=== PATIENT | male | born 1955 | race Caucasian/White ===

== ENCOUNTER 2018-08-30 18:07 | Inpatient (IN) | payer OTHER ==
[~2018-08-30] VITALS: Ht 176.5 cm; Wt 86.0 kg
[2018-08-30 19:45] VITALS: BP 116/81
[2018-08-30] MEDS ORDERED: ONDANSETRON ODT 4 MG PO PRN (21:00)
[2018-08-30] MEDS ORDERED: ACETAMINOPHEN 325 MG TABLET PO PRN (21:00)
[2018-08-30] MEDS ORDERED: BISACODYL 10 MG SUPP PR PRN (21:00)
[2018-08-30] MEDS ORDERED: POLYETHYLENE GLYCOL 17 GM PACKET PO PRN (21:00)
[2018-08-30] MEDS ORDERED: GUAIFENESIN/DM 200-20MG, 10ML UDC PO PRN (21:00)
[2018-08-30 21:25] LABS: HCT (SEDRATE) 34.2 % (39.2-51.8)
[2018-08-30 21:39] LABS: TROPONIN I < 0.015 ng/mL (0.000-0.045)
[2018-08-30] MEDS ORDERED: IBUPROFEN 200 MG TABLET ONE (21:56)
[2018-08-30] MEDS: FUROSEMIDE 20 MG/2 ML IV SCH (22:08)
[2018-08-30] MEDS: IBUPROFEN 600 MG TABLET PO SCH (22:09)
[2018-08-30] MEDS: SODIUM CHLORIDE FLUSH 10ML SYR IVF SCH (22:12)
[2018-08-30] MEDS: PLEASE ENTER HEIGHT AND WEIGHT MC SCH (23:00)
[2018-08-31 01:50] VITALS: BP 122/86
[2018-08-31 02:28] LABS: BASOPHILS # (AUTO) 0.03 x10^3/uL (0-0.1); BASOPHILS % (AUTO) 0 % (0-1); EOSINOPHILS # (AUTO) 0.33 x10^3/uL (0-0.4); EOSINOPHILS % (AUTO) 3 % (1-7); LYMPHOCYTES # (AUTO) 2.32 x10^3/uL (1-3.4); LYMPHOCYTES % (AUTO) 19 % (22-44); MD NO; MEAN CORPUSCULAR HEMOGLOBIN 30.6 pg (27.5-34.5); MEAN CORPUSCULAR HGB CONC 34.3 g/dL (33.2-36.2); MEAN CORPUSCULAR VOLUME 89.4 fL (81-97); MEAN PLATELET VOLUME 7.1 fL (7.4-10.4); MONOCYTES # (AUTO) 1.07 x10^3/uL (0.2-0.8); MONOCYTES % (AUTO) 9 % (2-9); NEUTROPHILS % (AUTO) 70 % (42-75); PLATELET COUNT 816 x10^3/uL (130-400); RED BLOOD COUNT 3.53 x10^6/uL (4.38-5.82)
[2018-08-31 02:39] LABS: ALANINE AMINOTRANSFERASE 39 U/L (12-78); ALBUMIN 2.7 g/dL (3.4-5.0); ANION GAP 9 mmol/L (5-15); CALCIUM 8.9 mg/dL (8.5-10.1); CHLORIDE 102 mmol/L (98-107)
[2018-08-31 02:41] LABS: TROPONIN I 0.016 ng/mL (0.000-0.045)
[2018-08-31 02:46] LABS: ALKALINE PHOSPHATASE 106 U/L (45-117); BILIRUBIN,TOTAL 0.7 mg/dL (0.2-1.0); TOTAL PROTEIN 6.7 g/dL (6.4-8.2)
[2018-08-31] MEDS: PLEASE ENTER HEIGHT AND WEIGHT MC SCH (05:00)
[2018-08-31] MEDS: FUROSEMIDE 20 MG/2 ML IV SCH ×2 (09:18→16:36)
[2018-08-31] MEDS: SODIUM CHLORIDE FLUSH 10ML SYR IVF SCH ×2 (09:19→22:03)
[2018-08-31 09:24] VITALS: BP 105/72
[2018-08-31] MEDS ORDERED: OXYcodone 5 MG/5 ML ORAL.SOL UDC PO PRN (09:30)
[2018-08-31] MEDS: IBUPROFEN 600 MG TABLET PO SCH ×3 (09:40→22:03)
[2018-08-31] MEDS: SENNA/DOCUSATE TABLET PO SCH (09:40)
[2018-08-31] MEDS: COLCHICINE 0.6 MG TABLET PO SCH (09:44)
[2018-08-31] MEDS: LISINOPRIL 5 MG TABLET PO SCH (09:44)
[2018-08-31 14:00] VITALS: BP 114/76
[2018-08-31] MEDS: METOPROLOL TARTRATE 25 MG TABLET PO SCH (17:44)
[2018-08-31 19:21] VITALS: BP 112/77
[2018-08-31] MEDS ORDERED: IBUPROFEN 200 MG TABLET ONE (21:39)
[2018-08-31] MEDS: ATORVASTATIN 80 MG TABLET PO SCH (22:03)
[2018-09-01 01:55] VITALS: BP 111/71
[2018-09-01 04:55] LABS: BASOPHILS # (AUTO) 0.26 x10^3/uL (0-0.1); BASOPHILS % (AUTO) 2 % (0-1); EOSINOPHILS # (AUTO) 0.39 x10^3/uL (0-0.4); EOSINOPHILS % (AUTO) 3 % (1-7); LYMPHOCYTES % (AUTO) 18 % (22-44); MD NO; MEAN CORPUSCULAR HEMOGLOBIN 30.4 pg (27.5-34.5); MEAN CORPUSCULAR HGB CONC 34.2 g/dL (33.2-36.2); MEAN PLATELET VOLUME 7.4 fL (7.4-10.4); MONOCYTES % (AUTO) 7 % (2-9); NEUTROPHILS # (AUTO) 8.29 x10^3/uL (1.8-6.8); NEUTROPHILS % (AUTO) 69 % (42-75); PLATELET COUNT 821 x10^3/uL (130-400); RED BLOOD COUNT 3.66 x10^6/uL (4.38-5.82); RED CELL DISTRIBUTION WIDTH 13.2 % (9.4-14.8)
[2018-09-01 05:08] LABS: CHLORIDE 102 mmol/L (98-107)
[2018-09-01 05:36] LABS: % IRON SATURATION 14 % (20-55); ALANINE AMINOTRANSFERASE 42 U/L (12-78); ALBUMIN 2.8 g/dL (3.4-5.0); ALKALINE PHOSPHATASE 111 U/L (45-117); ANION GAP 8 mmol/L (5-15); BILIRUBIN,TOTAL 0.9 mg/dL (0.2-1.0); CALCIUM 8.9 mg/dL (8.5-10.1); CREATININE 0.91 mg/dL (0.7-1.3); IRON LEVEL 35 mcg/dL (65-175); TOTAL IRON BINDING CAPACITY 244 mcg/dL (250-450); TOTAL PROTEIN 6.9 g/dL (6.4-8.2)
[2018-09-01] MEDS: METOPROLOL TARTRATE 25 MG TABLET PO SCH ×2 (06:11→17:34)
[2018-09-01 06:32] VITALS: BP 105/70
[2018-09-01] MEDS: IBUPROFEN 600 MG TABLET PO SCH ×3 (09:00→21:02)
[2018-09-01] MEDS: SENNA/DOCUSATE TABLET PO SCH (09:00)
[2018-09-01] MEDS: SODIUM CHLORIDE FLUSH 10ML SYR IVF SCH ×2 (09:00→21:03)
[2018-09-01] MEDS ORDERED: IBUPROFEN 200 MG TABLET ONE ×3 (09:54→20:58)
[2018-09-01] MEDS: FUROSEMIDE 20 MG/2 ML IV SCH ×2 (10:02→17:34)
[2018-09-01] MEDS: LISINOPRIL 5 MG TABLET PO SCH (10:02)
[2018-09-01] MEDS: COLCHICINE 0.6 MG TABLET PO SCH (10:02)
[2018-09-01 13:45] VITALS: BP 109/76
[2018-09-01 18:30] VITALS: BP 99/69
[2018-09-01] MEDS: ATORVASTATIN 80 MG TABLET PO SCH (21:02)
[2018-09-02 01:35] VITALS: BP 94/58
[2018-09-02 05:08] LABS: BASOPHILS # (AUTO) 0.09 x10^3/uL (0-0.1); BASOPHILS % (AUTO) 1 % (0-1); EOSINOPHILS % (AUTO) 4 % (1-7); LYMPHOCYTES # (AUTO) 2.23 x10^3/uL (1-3.4); LYMPHOCYTES % (AUTO) 20 % (22-44); MD NO; MEAN CORPUSCULAR HEMOGLOBIN 30.3 pg (27.5-34.5); MEAN CORPUSCULAR HGB CONC 34.1 g/dL (33.2-36.2); MEAN CORPUSCULAR VOLUME 88.8 fL (81-97); MEAN PLATELET VOLUME 7.1 fL (7.4-10.4); MONOCYTES # (AUTO) 0.98 x10^3/uL (0.2-0.8); MONOCYTES % (AUTO) 9 % (2-9); NEUTROPHILS # (AUTO) 7.35 x10^3/uL (1.8-6.8); NEUTROPHILS % (AUTO) 67 % (42-75); PLATELET COUNT 815 x10^3/uL (130-400); RED BLOOD COUNT 3.63 x10^6/uL (4.38-5.82); RED CELL DISTRIBUTION WIDTH 13.1 % (9.4-14.8)
[2018-09-02 05:09] LABS: HCT (SEDRATE) 32.7 % (39.2-51.8)
[2018-09-02 05:19] LABS: ANION GAP 10 mmol/L (5-15); CALCIUM 8.6 mg/dL (8.5-10.1); CHLORIDE 101 mmol/L (98-107); CREATININE 1.08 mg/dL (0.7-1.3)
[2018-09-02] MEDS: METOPROLOL TARTRATE 25 MG TABLET PO SCH (06:36)
[2018-09-02 06:37] VITALS: BP 106/71
[2018-09-02] MEDS: SENNA/DOCUSATE TABLET PO SCH (09:00)
[2018-09-02] MEDS ORDERED: IBUPROFEN 200 MG TABLET ONE (09:01)
[2018-09-02] MEDS: COLCHICINE 0.6 MG TABLET PO SCH (09:08)
[2018-09-02] MEDS: IBUPROFEN 600 MG TABLET PO SCH (09:09)
[2018-09-02] MEDS: LISINOPRIL 5 MG TABLET PO SCH (09:11)
[2018-09-02] MEDS: FUROSEMIDE 20 MG/2 ML IV SCH (09:12)
[2018-09-02] MEDS: SODIUM CHLORIDE FLUSH 10ML SYR IVF SCH (09:13)
[2018-09-02] MEDS ORDERED: COLC0.6T37 PO (09:46)
== END 2018-09-02 12:50 | disposition home or self-care (01) | DRG 314 ==
LOC: 5SO 19:16 → DCLOUNGE 09-02 11:23
PROVIDERS: ADMIT Internal Medicine; ATTEND Family Medicine
DX: I31.9 Disease of pericardium, unspecified (principal); K85.90 Acute pancreatitis without necrosis or infection, unspecified; I47.2 Ventricular tachycardia; J90 Pleural effusion, not elsewhere classified; I25.10 Atherosclerotic heart disease of native coronary artery without angina pectoris; D64.9 Anemia, unspecified; I10 Essential (primary) hypertension; K90.0 Celiac disease; Z95.1 Presence of aortocoronary bypass graft; Z82.5 Family history of asthma and other chronic lower respiratory diseases; Z82.49 Family history of ischemic heart disease and other diseases of the circulatory system; Z72.0 Tobacco use
CPT/HCPCS: 36415; 80048; 80053; 82607; 82728; 83540; 83550; 83690; 83735; 83880; 84484; 85025; 85651; 86140; 86141; 93306; G0378; J1940

== ENCOUNTER → 2018-09-09 | Outpatient (CLI) | payer OTHER ==
[~2018-09-09] MED LIST: COLC0.6T37 PO
== END | disposition home or self-care (01) ==
LOC: CVU 15:16
PROVIDERS: ATTEND Internal Medicine Cardiovascular Disease
DX: I35.8 Other nonrheumatic aortic valve disorders (principal); I31.3 Pericardial effusion (noninflammatory); I10 Essential (primary) hypertension; Z95.1 Presence of aortocoronary bypass graft
CPT/HCPCS: 93308; 93321